=== PATIENT | female | born 1980 | race Caucasian/White ===

== ENCOUNTER 2023-05-20 14:33 | Outpatient (CLI) | payer BC, SELFPAY ==
[2023-05-20 18:41] LABS: Basophils Percent Auto 0.3 % (0.2-1.2); Eosinophils Absolute Auto 0.1 K/mm3 (0-0.3); Eosinophils Percent Auto 1.2 % (0-4.4); Hematocrit 41.7 % (37.0-47.0); Hemoglobin 13.9 g/dL (12.0-15.0); Immature Granulocyte Absolute 0.02 K/mm3 (0.00-0.031); Immature Granulocyte Percent A 0.3 % (0-0.5); Lymphocytes Absolute Auto 1.94 K/mm3 (0.9-3.2); Lymphocytes Percent Auto 29.1 % (18.3-44.2); Mean Corpuscular HGB Conc 33.3 g/dl (32-36); Mean Corpuscular Hemoglobin 33.4 pg (26-34); Mean Corpuscular Volume 100.2 fl (80-100); Mean Platelet Volume 10.7 fl (7.4-10.4); Monocytes Absolute Auto 0.4 K/mm3 (0.1-0.6); Monocytes Percent Auto 6.2 % (2.6-8.5); Neutrophils Absolute Auto 4.2 K/mm3 (1.3-6.7); Neutrophils Percent Auto 62.9 % (45.5-73.1); Platelet Count Result 235 k/mm3 (150-375); Red Blood Count 4.16 M/mm3 (4.2-5.4); Red Cell Distribution Width 12.7 % (11.5-14.5); White Blood Count 6.7 K/mm3 (4.5-10.0)
[2023-05-20 20:50] LABS: Alanine Aminotransferase 30 U/L (6-35); Albumin Level 4.5 g/dL (3.5-5.1); Alkaline Phosphatase 73 U/L (38-126); Anion Gap 5 mmol/L (4-12); Aspartate Amino Transferase 34 U/L (14-36); Bilirubin,Total 1.5 mg/dL (0.2-1.3); Blood Urea Nitrogen 19 mg/dL (7-17); Calcium 9.7 mg/dL (8.4-10.2); Carbon Dioxide 27 mmol/L (22-30); Chloride 105 mmol/L (98-107); Cholesterol 163 mg/dL (0-200); Estimated Glomerular Filt Rate > 60; Glucose 79 mg/dL (65-110); HDL Direct 56 mg/dL; Sodium 137 mmol/L (137-145); Triglycerides 68 mg/dL (<150)
[2023-05-20 21:01] LABS: LDL Cholesterol Direct 80 mg/dL
[2023-05-20 21:46] LABS: Vitamin B12 > 1000.0 pg/mL (239-931)
[2023-05-20 22:01] LABS: Vitamin D 25 Hydroxy 56.7 ng/mL
[2023-05-20 22:36] LABS: Hepatitis C Virus Antibody Negative (Negative)
[2023-05-20 23:56] LABS: Hemoglobin A1C 4.3 % (<5.7)
== END 2023-05-20 14:34 | disposition home or self-care (01) ==
LOC: ANHGOSHLAB 14:34
PROVIDERS: PCP Family Medicine; Visit Provider Family Medicine
DX: Z00.8 Encounter for other general examination (principal); G47.33 Obstructive sleep apnea (adult) (pediatric); I11.0 Hypertensive heart disease with heart failure; I50.22 Chronic systolic (congestive) heart failure; E66.9 Obesity, unspecified; Z79.899 Other long term (current) drug therapy; Z98.84 Bariatric surgery status; Z11.59 Encounter for screening for other viral diseases
CPT/HCPCS: 36415; 80053; 80061; 82306; 82607; 82728; 83036; 84443; 85025; 86803

== ENCOUNTER 2023-09-04 00:41 | Day surgery (SDC) | payer BC, SELFPAY ==
[2023-08-19 12:03] VITALS: BMI 38.9
[2023-09-04 07:27] VITALS: BP 152/106; PULSE 60; RESP 20; TEMP 36.1; O2SAT 100; BMI 38.8
[2023-09-04] MEDS: LACTATED RINGERS 1,000 ML 150 ML IV CONT (07:39)
[2023-09-04 07:58] LABS: SPREG INTERNAL CONTROL Positive; Serum Qual hCG Negative
--- NOTE | 2023-09-04 08:05 | WPDANESEPPF ---
Anes - Initial Pre Proc Eval Procedure: Operation Date: 09/04/23 08:30 Proposed Procedures p Screening Colonoscopy - Saad Fernandes MD Date/Time: 09/04/23 08:05 Surgeon: Saad Fernandes MD Pre Op Diagnosis: neoplasm screening Patient Data Age: 43 Gender: F Height: 1.7 m Weight: 112.5 kg Last Vital Signs Temp 97.0 F L 09/04/23 07:27 Pulse 60 09/04/23 07:27 Resp 20 09/04/23 07:27 BP 152/106 H 09/04/23 07:27 Pulse Ox 100 09/04/23 07:27 O2 Del Method Room Air 09/04/23 07:27 Allergies Allergy/AdvReac Type Severity Reaction Status Date / Time amoxicillin Allergy Mild Unknown Verified 09/04/23 07:26 Home Medications Medication Instructions Recorded Confirmed Type famotidine 20 mg tablet 20 mg PO BID 02/05/21 09/04/23 History losartan 100 mg tablet 100 mg PO DAILY 02/05/21 09/04/23 History amlodipine 10 mg tablet 10 mg PO DAILY 04/10/21 09/04/23 History carvedilol 12.5 mg tablet 12.5 mg PO Q12H 05/20/23 09/04/23 History mecobalamin (vitamin B12) 5,000 5,000 mcg PO DAILY 05/20/23 09/04/23 History mcg chewable tablet [id number]-bpftawpo-jfwb 1 tablet PO DAILY 05/20/23 09/04/23 History fumarate 18 mg-folic acid 400 mcg tablet (One-A-Day Women's Complete) omega 7-smg-dzx-fish oil 60 mg-90 1 cap PO DAILY 05/20/23 09/04/23 History mg-500 mg capsule (Fish Oil) venlafaxine 37.5 mg tablet 37.5 mg PO DAILY #90 tabs 05/20/23 09/04/23 Rx Laboratory Tests 09/04/23 07:37 Serum HCG, Qual Negative Patient hx anesthesia problems: none Family hx anesthesia problems: none Results Review: All pre-operative results and documents have been reviewed as part of the pre-operative evaluation. [facility] Past Medical History Medical History Encounter for Essure implantation Surgical History Surgical History Hx of bariatric surgery Family History Family History Father Diabetes mellitus Hypertension Depression Heart problem Mother Cancer Hypertension Social History Social History Years smoked: 20 Smoking status: Former smoker Tobacco type: cigarettes Smoking end date: 04/02/15 Alcohol intake: never Substance use: never Substance use type: does not use Other substance usage details: as a teenager Do You Feel Safe in your Home?: Yes Living arrangements: alone Occupation/Education: occupation Gender identity (if verbalized by the patient): Female Spiritual care concerns: No Anes - Eval Final PreProcedure Day of Procedure 09/04/23 08:05 Patient weight: obese Heart: regular rate and rhythm Lungs: clear to auscultation Airway: Mallampati scale class II Neurological: alert and oriented Last oral intake: >/= 8 hours ASA classification: III Emergent: no Anesthetic plan: proceed Anesthesia type and monitoring: general GIVS and standard monitoring Results Review: All pre-operative results and documents have been reviewed as part of the pre-operative evaluation. HTN, hx hyperlipidemia, hx of cardiomyopathy w nml LVEF prior to gastric bypass. Informed Consent: The patient's anesthetic plan and its attendant risks and benefits were discussed with the patient/family/POA. Questions were solicited and answers provided to the satisfaction of the patient/family/POA.
[2023-09-04 09:03] VITALS: BP 109/56; PULSE 54; RESP 16; O2SAT 100
[2023-09-04 09:13] VITALS: BP 116/73; PULSE 54; RESP 16; O2SAT 100
[2023-09-04 09:23] VITALS: BP 134/84; PULSE 50; RESP 16; O2SAT 100
--- NOTE | 2023-09-08 10:30 | PM.HPGS ---
History of Present Illness History of Present Illness Consent: Risks, benefits, and alternatives have been discussed and questions answered. Patient agrees to proceed with procedure. Chief complaint: neoplasm screening Narrative: Sena Smith is a 43 year old female here for first screening colonoscopy (this should be H&P for 09/04/23) Review of Systems Review of Systems: All systems reviewed & are unremarkable except as noted in HPI and below PMFSH Past Medical History Medical History (Updated 09/08/23 @ 10:30 by Saad Fernandes MD) Colon cancer screening Encounter for Essure implantation Surgical History Surgical History Hx of bariatric surgery Family History Family History Father Diabetes mellitus Hypertension Depression Heart problem Mother Cancer Hypertension Social History Social History Years smoked: 20 Smoking status: Former smoker Tobacco type: cigarettes Smoking end date: 04/02/15 Alcohol intake: never Substance use: never Substance use type: does not use Other substance usage details: as a teenager Do You Feel Safe in your Home?: Yes Living arrangements: alone Occupation/Education: occupation Gender identity (if verbalized by the patient): Female Spiritual care concerns: No Meds Home Medications and Allergies Home Medications Medication Instructions Recorded Confirmed Type famotidine 20 mg tablet 20 mg PO BID 02/05/21 09/04/23 History losartan 100 mg tablet 100 mg PO DAILY 02/05/21 09/04/23 History amlodipine 10 mg tablet 10 mg PO DAILY 04/10/21 09/04/23 History carvedilol 12.5 mg tablet 12.5 mg PO Q12H 05/20/23 09/04/23 History mecobalamin (vitamin B12) 5,000 5,000 mcg PO DAILY 05/20/23 09/04/23 History mcg chewable tablet [id number]-znesusdu-aaou 1 tablet PO DAILY 05/20/23 09/04/23 History fumarate 18 mg-folic acid 400 mcg tablet (One-A-Day Women's Complete) omega 3-yfi-lxl-fish oil 60 mg-90 1 cap PO DAILY 05/20/23 09/04/23 History mg-500 mg capsule (Fish Oil) venlafaxine 37.5 mg tablet 37.5 mg PO DAILY #90 tabs 05/20/23 09/04/23 Rx Allergies Allergy/AdvReac Type Severity Reaction Status Date / Time amoxicillin Allergy Mild Unknown Verified 09/04/23 07:26 Exam Const: General: comfortable and no acute distress HENMT: Face/Nose/Sinus: Normal nares present Eyes: General: appearance normal, both eyes and all related structures Neck: Neck: no JVD Resp: Auscultation: clear to auscultation bilaterally Cardio: Rate: regular rate Rhythm: regular rhythm GI: Inspection: non-distended GI Palp: Yes Soft to palpation Skin: General skin exam: normal color Neuro: General: gait normal Speech: normal speech Extrem: General: normal to inspection Psych: Mental Status: mental status grossly normal Assessment and Plan Assessment and plan (1) Colon cancer screening: Code(s): Z12.11 - Encounter for screening for malignant neoplasm of colon Status: Acute Assessment and Plan: colonoscopy
== END 2023-09-04 09:40 | disposition home or self-care (01) ==
PROVIDERS: Anesthesiology; PCP Family Medicine; Visit Provider Internal Medicine Gastroenterology
PROC: 0DJD8ZZ Inspection of Lower Intestinal Tract, Via Natural or Artificial Opening Endoscopic (ICD-10-PCS; CPT 45378; principal; 2023-09-04 08:30)
DX: Z12.11 Encounter for screening for malignant neoplasm of colon (principal); K64.8 Other hemorrhoids; Z87.891 Personal history of nicotine dependence
CPT/HCPCS: 45378; 36415; 84703; J2704; J7120

== ENCOUNTER 2024-06-02 11:04 | Outpatient (CLI) | payer BC, SELFPAY ==
--- OUTSIDE RECORDS SUMMARY | 2024-06-02 11:56 | XMS_ITS | Clinical Summary ---
Author Organization [facility] Address [address] [place] [address] Care Team Providers Care Aircraft Parts Assembler Name Role Phone Eliezer Mcdaniel MD Primary Care Provider [phone] Allergies Active Allergy Reactions Criticality Noted Date Comments Amoxicillin Hives,Itching Medium 11/18/2018 Medications cholecalcifero l (VITAMIN D-3) 25 mcg (1,000 unit) tabletIndicati ons:Vitamin D Deficiency Take 1 tablet (1,000 Units total) by mouth every morning Active cyanocobalamin (Vitamin B-12) 500 mcg tabletIndicati ons:Prevention of Vitamin B12 Deficiency Take 1 tablet (500 mcg total) by mouth daily 30 tablet 11 0 Active fish mey-wkbpm-8-vi t C-vit E 2,000-650-12 mg/2.5 gram emulsion in packet Take by mouth Active multivit-iron- min-folic acid 18-0.4 mg tablet Take by mouth Active carvediloL (COREG) 12.5 mg tablet Take 0.5 tablets (6.25 mg total) by mouth 2 (two) times a day with meals 180 tablet 1 4 Active amLODIPine (NORVASC) 10 mg tablet TAKE 1 TABLET(10 MG) BY MOUTH DAILY 90 tablet 2 5 Active losartan (COZAAR) 100 mg tablet TAKE 1 TABLET(100 MG) BY MOUTH DAILY 90 tablet 3 5 Active losartan (COZAAR) 100 mg tablet TAKE 1 TABLET(100 MG) BY MOUTH DAILY 90 tablet 1 4 06/01/19 25 Discontinued Active Problems Problem Noted Date Diagnosed Date Dyslipidemia 01/23/2021 Mild aortic regurgitation wi th LV dilation by prior echocardiogram 01/23/2021 Pulmonary infiltrates 08/22/[address] of the chest 08/21/2020 Dilated cardiomyopathy 07/02/2020 Morbid obesity due to excess calories 12/02/2019 Overview (12/02/2019): Added automatically from request for surgery [id number] Lung nodule 05/03/2019 Major depressive disorder, s abelino episode, in partial remission 12/21/2018 Morbid obesity 11/18/2018 HTN (hypertension) 04/27/2015 Preop pulmonary/respiratory exam Encounters Date Type Department Care Team Description 03/21/2024 Orders Only [facility] Cardiology [address] [place] [address] [place] [address] Ish Ceron MD from Last 3 Months Surgical History Surgery Date Site/Laterality Comments SECTION ABDOMINAL SURGERY GASTRECTOMY gastric bypass 2020 HERNIA REPAIR Medical History Medical History Date Comments Morbid obesity (HCC) Joint pain Hypertension Depression Anxiety Sleep apnea does not use CPA P Family History Medical History Relation Name Comments Diabetes Father Heart disease Father Hypertension Father Obesity Father Cancer Mother eye & spleen, b rain tumor Hypertension Mother Obesity Mother Diabetes Other 1 grandparents Heart disease Other 1 grandparents Hypertension Other 1 grandparents Depression Other 2 siblings Obesity Other 2 siblings Relation Name Status Comments Father Mother Other 1 grandparents Other 2 siblings Social History Tobacco Use Types Packs/Day Years Used Date Smoking Tobacco: Former Cigarettes 0.3 16 2 000 - 2016 Smokeless Tobacco: Never Tobacco Cessation:Counseling Given: Not Answered Alcohol Use Standard Drinks/Week Comments Not Currently 0 (1 standard drink = 0.6 oz pur e alcohol) AUDIT-C Answer Date Recorded Q1: How often do you have a drink containing alc ohol? Never 09/05/2020 Average Number of Drinks Not on file 021 Frequency of Binge Drinking Not on file 08/17 PHQ-2 Answer Date Recorded PHQ-2 Total Score (If total score is 3 or more points, staff should administer the PHQ-9) 0 12/26/2019 Comments No Sex and Gender Information Value Date Recorded Sex Assigned at Not on file Legal Sex Female 1:07 PM DIGITAL COMPUTER SYSTEMS ANALYST Gender Identity Not on file Sexual Orientation Not on file Obstetrics History Para Term AB IAB SAB Ectopic Multiple Livin g Live Births 2 2 2 Date Outcome GA Total Labor Labor/2nd/3rd Weight Sex Type Anes PTL Samara A1 A5 Name Clin Term Term Last Filed Vital Signs Vital Sign Reading Time Taken Comments Blood Pressure 128/98 10/07/2023 3:23 PM CDT Pulse 59 10/07/2023 3:23 PM CDT Temperature 37.2 C (99 F) 11/28/2021 2:56 PM CDT Respiratory Rate 18 11/28/2021 2:56 PM CDT Oxygen Saturation 97% 10/07/2023 3:23 PM CDT Inhaled Oxygen Concentration - - Weight 96.7 kg (213 lb 1.9 oz) 01/24/2022 11:38 AM DIGITAL COMPUTER SYSTEMS ANALYST Height 170.2 cm (5' 7 ) 10/07/2023 3:23 PM CDT Body Mass Index 33.38 01/24/2022 11:38 AM DIGITAL COMPUTER SYSTEMS ANALYST Plan of Treatment Health Maintenance Due Date Last Done Comments Cervical Cancer Screening 1978 Colon Cancer Screening-Colonoscopy 1978 Hepatitis C Screening 1978 DTaP/Tdap/Td Vaccine (1 - Tdap) 1989 Hepatitis B Screening 01/28/1996 Regular Well Visit/Exam 18-64 01/28/1996 Depression Screening 12/01/2020 12/02/2019, 12/02/2019 Influenza Vaccine (Season Ended) 2024 12/18/2018 Breast Cancer Screening-Mammogram 11/05/2024 11/06/2023 HPV Vaccines Aged Out No longer eligi ble based on patient's age to complete this topic Pneumococcal vaccine <65 Aged Out No longer eligible based on patient's age to complete this topic Procedures Procedure Name Priority Date/Time Associated Diagnosis Comments SCREENING MAMMOGRAM BILATERAL W FRANK Schedule Routine, Read Routine (OP Routine) 11/06/2023 7:54 AM CDT Screening mammogram, encounter for from Last 3 Months or Most Recently Relevant to Health Maintenance Results * Screening Mammogram Bilateral W Frank (11/06/2023 7:54 AM CDT) Anatomical Region Laterality Modality Breast Bilateral Mammography 11/06/2023 9:35 AM CDT Impressions 11/06/2023 9:35 AM CDT No evidence of malignancy in either breast. FINAL ASSESSMENT: BI-RADS Category 1: Negative. RECOMMENDATION: Recommend return for annual screening mammogram in 12 months. Electronically signed by: Isai Ariza 11/06/2023 9:35 AM CDT EXAMINATION: BILATERAL SCREENING MAMMOGRAM COMPARISON: This is the patient's baseline mammogram. TECHNIQUE: Full-field 2D and digital breast tomosynthesis (DBT) images were obtained. CAD was utilized. BREAST PARENCHYMAL COMPOSITION: The breasts are almost entirely fatty. FINDINGS: There is no suspicious mass, calcification, or distortion in either breast. us Self Screening Mammogram IMG MAMMO PROCEDURES Fi nal Result from Last 3 Months or Most Recently Relevant to Health Maintenance Insurance SeeMore Interactive PA SeeMore Interactive PA SeeMore Interactive PA SeeMore Interactive PA Advance Directives For more information, please contact: [phone] * Full Code (Latest Code Status on File) Date Activated Date Inactivated Comments 12/26/2019 2:32 PM 12/27/2019 7:33 PM Care Teams Aircraft Parts Assembler Relationship Specialty Start Date End Date Eliezer Mcdaniel MD PCP - General Family Medicine 01/23/21
--- OUTSIDE RECORDS SUMMARY | 2024-06-02 11:56 | XMS_ITS | Clinical Summary ---
Author Organization [facility] Address [address] [place] [place] [address] Care Team Providers Care Dumper Bailer Operator Name Role Phone Gerald Darby MD Primary Care Provider [phone] Ross Macario Unavailable [phone] Source Comments [facility],non-owned Affiliates and Associated Physician Practices is amultiple site organization consisting of ambulatory clinics and hospital sitesin [place], [place], [place] and [place]. This disclosure is being madepursuant to the Care Everywhere program and may not contain all information available regarding this patient. Last updated 17.[facility] Allergies No known active allergies Medications * Be aware that medications may not be up to date on this document. Alwaysverify current medications with the patient. [place] POTASSIUM PO Take 100 mg by mouth Active hydrochlorothiaz eun (HYDRODIURIL) 25 MG tablet Take 25 mg by mouth once daily Active metoprolol succinate XL 24hr (TOPROL XL) 100 MG tablet Take 100 mg by mouth once daily Active Active Problems Problem Noted Date Diagnosed Date HTN (hypertension) 04/27/2015 Morbid obesity due to excess calories 04/27/2015 Arthritis of spine 04/27/2015 Social History Tobacco Use Types Packs/Day Years Used Date Smoking Tobacco: Former Cigarettes Q uit: 03/26/2015 Alcohol Use Standard Drinks/Week Comments Not Asked 0 (1 standard drink = 0.6 oz pur e alcohol) Comments Unknown Sex and Gender Information Value Date Recorded Sex Assigned at Not on file Legal Sex Female 6:30 AM BUSINESS SYSTEMS CONSULTANT Gender Identity Not on file Sexual Orientation Not on file Last Filed Vital Signs Vital Sign Reading Time Taken Comments Blood Pressure 174/111 04/27/2015 11:20 AM BUSINESS SYSTEMS CONSULTANT Pulse 65 04/27/2015 11:20 AM BUSINESS SYSTEMS CONSULTANT Temperature - - Respiratory Rate - - Oxygen Saturation - - Inhaled Oxygen Concentration - - Weight 156 kg (344 lb) 04/27/2015 3:00 PM BUSINESS SYSTEMS CONSULTANT Height 170.2 cm (5' 7 ) 04/27/2015 3:00 PM BUSINESS SYSTEMS CONSULTANT Body Mass Index 53.88 04/27/2015 3:00 PM BUSINESS SYSTEMS CONSULTANT Plan of Treatment Health Maintenance Due Date Last Done Comments COLOGUARD (AGES 45-75) - COL ON CA SCREENING 1978 COLON MONITORING 1978 COLONOSCOPY - COLON CA SCREENING 1978 CT COLONOGRAPHY - COLON CA SCREENING 1978 Colorectal Cancer Screening 1978 FIT - COLON CA SCREENING 1978 FLEX SIG - COLON CA SCREENING 1978 LIPID TESTING 1978 MAMMOGRAM 1978 HIV SCREENING 1993 HEPATITIS C SCREENING 01/23/1996 DTAP/TDAP/TD VACCINES (1 - Tdap) 1997 HEPATITIS B VACCINE (1 of 3 - 19+ 3-dose series) 1997 COVID-19 VACCINE (1 - 2023-2 5 season) 2023 DEPRESSION SCREENING 02/17/2024 INFLUENZA VACCINE (Season Ended) 2024 ZOSTER VACCINE (1 of 2) 01/28/2028 HIB VACCINE Aged Out No longer eligi ble based on patient's age to complete this topic HPV VACCINE Aged Out No longer eligi ble based on patient's age to complete this topic MENINGOCOCCAL (Group B) VACC INE SHARED DECISION-MAKING Aged Out No longer eligibl e based on patient's age to complete this topic MENINGOCOCCAL GROUPS A/C/Y/W VACCINE Aged Out No longer eligible b ased on patient's age to complete this topic PNEUMOCOCCAL VACCINE Aged Out No long er eligible based on patient's age to complete this topic Insurance [employer] - [place] Care Teams Dumper Bailer Operator Relationship Specialty Start Date End Date Gerald Darby MD [address] [place] [phone] PCP - General Family Medicine 04/27/15 Ross Macario PA [address] [place] [phone] Physician Geoscience Technician 04/27/15
--- OUTSIDE RECORDS SUMMARY | 2024-06-02 11:56 | XMS_ITS | Clinical Summary ---
Author Organization [facility] Address [address] [place] [address] Care Team Providers Care Cow Rider Name Role Phone None, Provider MD Primary Care Provider Unavaila ble Allergies Active Allergy Reactions Criticality Noted Date Comments Amoxicillin-Pot Clavulanate Hives 08/13/19 16 Medications losartan (COZAAR) 100 MG tablet Take 1 tablet by mouth daily. 07/03/2015 Active hydrochlorothiaz eun 25 MG tablet Take 1 tablet by mouth daily. 07/03/2015 Active metoprolol succinate (TOPROL XL) 100 MG 24 hr tablet Take 1 tablet by mouth daily. 07/03/2015 Active Social History Tobacco Use Types Packs/Day Years Used Date Smoking Tobacco: Former Comments Unknown Sex and Gender Information Value Date Recorded Sex Assigned at Not on file Legal Sex Female 5:20 PM CDT Gender Identity Not on file Sexual Orientation Not on file Last Filed Vital Signs Vital Sign Reading Time Taken Comments Blood Pressure 157/96 07/11/2015 3:14 PM CDT Pulse 74 07/11/2015 3:13 PM CDT Temperature - - Respiratory Rate 16 07/11/2015 3:13 PM CDT Oxygen Saturation - - Inhaled Oxygen Concentration - - Weight 161 kg (354 lb 14.4 oz) 07/11/2015 3:13 P M CDT Height 172.7 cm (5' 8 ) 07/11/2015 3:13 PM CDT Body Mass Index 53.96 07/11/2015 3:13 PM CDT Plan of Treatment Health Maintenance Due Date Last Done Comments Cervical Cancer Screening Pa p Smear (Age 30 to 64) Every 3 Years 1978 Colorectal Cancer Screening Colonoscopy (10 Years) 1978 Annual Physical 1981 Hepatitis C 01/28/1996 DTaP, Tdap and Td Vaccines ( 1 - Tdap) 1997 Hepatitis B Vaccines (1 of 3 - 19+ 3-dose series) 1997 Cervical Cancer Screening Lencho leyva with HPV Testing (Age 30 to 64) Every 5 Years 01/28/2008 Cervical Cancer Screening with HPV 01/28/2008 Mammogram Screening 2018 COVID-19 Vaccine ( - 2023-2 5 season) 2023 Meningococcal B Vaccine Aged Out No l onger eligible based on patient's age to complete this topic Meningococcal Vaccine Aged Out No román ranjith eligible based on patient's age to complete this topic Pneumococcal Vaccine: Pediat rics (0 to 5 Years) and At-Risk Patients (6 to 49 Years) Aged Out No longer eligible b ased on patient's age to complete this topic RSV Immunizations Under 20 Months Aged Out No longer eligible based on patient's age to complete this topic Insurance Care Teams Cow Rider Relationship Specialty Start Date End Date None, Provider, PCP - General 07/15/19
--- OUTSIDE RECORDS SUMMARY | 2024-06-02 11:56 | XMS_ITS | Encounter Summary ---
Author Organization [facility] Address [address] [place] [address] Phone Care Team Providers Care Barrel Lathe Operator Name Role Phone Pily Cota NP Primary Care Provider [phone] Eliezer Mcdaniel MD Primary Care Provider [phone] Encounter Details Date Type Department Care Team (Latest Contact Info) Description 11/22/2019 Orders Only [facility] Scanning, Provider Social History Tobacco Use Types Packs/Day Years Used Date Smoking Tobacco: Former Cigarettes Q uit: 2016 Smokeless Tobacco: Never Alcohol Use Standard Drinks/Week Comments Not Currently 0 (1 standard drink = 0.6 oz pur e alcohol) Comments Unknown Sex and Gender Information Value Date Recorded Sex Assigned at Not on file Legal Sex Female 1:07 PM PATIENT SERVICE SPECIALIST Gender Identity Not on file Sexual Orientation Not on file documented as of this encounter Plan of Treatment Not on file documented as of this encounter Procedures Procedure Name Priority Date/Time Associated Diagnosis Comments SCAN - RADIOLOGY/IMAGING 11/22/2019 documented in this encounter Results * SCAN - RADIOLOGY/IMAGING (11/22/2019) Anatomical Region Laterality Modality Other us Provider Scanning Final Result documented in this encounter Visit Diagnoses Not on filedocumented in this encounter Care Teams Barrel Lathe Operator Relationship Specialty Start Date End Date Pily Cota NP PCP - General Nurse Practitioner 08/02/18 01/22/21 Eliezer Mcdaniel MD PCP - General Family Medicine 01/23/21 documented as of this encounter
--- OUTSIDE RECORDS SUMMARY | 2024-06-02 11:56 | XMS_ITS | Encounter Summary ---
Author Organization [facility] Address [address] [place] [address] Care Team Providers Care Finance Professional Name Role Phone Rajan Mayes MD Unavailable Unavailable None, Provider Primary Care Provider Unavaila ble Encounter Details Date Type Department Care Team (Late st Contact Info) Description 07/24/2018 Abstract [facility] CONVERSION [address] [address] , Generic Conversion, Social History Tobacco Use Types Packs/Day Years Used Date Smoking Tobacco: Former Comments Unknown Sex and Gender Information Value Date Recorded Sex Assigned at Not on file Legal Sex Female 5:20 PM CDT Gender Identity Not on file Sexual Orientation Not on file documented as of this encounter Plan of Treatment Not on file documented as of this encounter Visit Diagnoses Not on filedocumented in this encounter Care Teams Finance Professional Relationship Specialty Start Date End Date None, Provider, PCP - General 07/15/19 Rajan Mayes MD [employer] Private Wealth Advisor CARDIOVASCULAR DISEASE 06/04/17 02/23/19 documented as of this encounter
--- OUTSIDE RECORDS SUMMARY | 2024-06-02 11:56 | XMS_ITS | Referral Summary ---
Author Organization [facility] Address [address] [place] [address] Care Team Providers Care K 12 Principal Name Role Phone Eliezer Mcdaniel MD Primary Care Provider [phone] Encounters Date Type Department Care Team Description 03/21/2024 Orders Only [facility] [address] [place] [address] [place] [address] Ish Ceron MD from Last 3 Months Allergies Active Allergy Reactions Criticality Noted Date Comments Amoxicillin Hives,Itching Medium 11/18/2018 Medications cholecalcifero l (VITAMIN D-3) 25 mcg (1,000 unit) tabletIndicati ons:Vitamin D Deficiency Take 1 tablet (1,000 Units total) by mouth every morning Active cyanocobalamin (Vitamin B-12) 500 mcg tabletIndicati ons:Prevention of Vitamin B12 Deficiency Take 1 tablet (500 mcg total) by mouth daily 30 tablet 11 0 Active fish [id number] t C-vit E 2,000-650-12 mg/2.5 gram emulsion [...] (12/02/2019): Added automatically from request for surgery [id number] Lung nodule 05/03/2019 Major depressive disorder, s abelino episode, in partial remission 12/21/2018 Morbid obesity 11/18/2018 HTN (hypertension) 04/27/2015 Preop pulmonary/respiratory exam Social History Tobacco Use Types Packs/Day Years Used Date Smoking Tobacco: Former Cigarettes 0.3 16 2 000 - 2015 Smokeless Tobacco: Never Tobacco Cessation:Counseling Given: Not [...] on file Legal Sex Female 1:07 PM SUPPORT ANALYST Gender Identity Not on file Sexual [...] (213 lb 1.9 oz) 01/24/2022 11:38 AM SUPPORT ANALYST Height 170.2 cm (5' 7 ) 10/07/2023 3:23 PM CDT Body Mass Index 33.38 01/24/2022 11:38 AM SUPPORT ANALYST Plan of Treatment Not on file Procedures Procedure Name Priority Date/Time Associated Diagnosis [...] mammogram in 12 months. Electronically signed by: Cathryn Doe M.D. Narrative 11/06/2023 9:35 AM CDT EXAMINATION: BILATERAL SCREENING [...] Most Recently Relevant to Health Maintenance Insurance [facility] [employer] [facility] Advance Directives For more information, please contact: [phone] * Full Code (Latest Code Status on File) Date Activated Date Inactivated Comments 12/26/2019 2:32 PM 12/27/2019 7:33 PM Care Teams K 12 Principal Relationship Specialty Start Date End Date Eliezer Mcdaniel MD PCP - General Family Medicine 01/23/21
[2024-06-02 12:56] LABS: Basophils Percent Auto 0.3 % (0.2-1.2); Eosinophils Absolute Auto 0.1 K/mm3 (0-0.3); Eosinophils Percent Auto 2.2 % (0-4.4); Hematocrit 41.8 % (37.0-47.0); Hemoglobin 13.7 g/dL (12.0-15.0); Immature Granulocyte Absolute 0.02 K/mm3 (0.00-0.031); Immature Granulocyte Percent A 0.3 % (0-0.5); Lymphocytes Absolute Auto 1.63 K/mm3 (0.9-3.2); Lymphocytes Percent Auto 25.8 % (18.3-44.2); Mean Corpuscular HGB Conc 32.8 g/dl (32-36); Mean Corpuscular Hemoglobin 32.8 pg (26-34); Mean Platelet Volume 10.4 fl (7.4-10.4); Monocytes Absolute Auto 0.5 K/mm3 (0.1-0.6); Monocytes Percent Auto 8.5 % (2.6-8.5); Neutrophils Percent Auto 62.9 % (45.5-73.1); Platelet Count Result 273 k/mm3 (150-375); Red Blood Count 4.18 M/mm3 (4.2-5.4); Red Cell Distribution Width 12.5 % (11.5-14.5); White Blood Count 6.3 K/mm3 (4.5-10.0)
[2024-06-02 13:31] LABS: Hemoglobin A1C 4.7 % (<5.7)
[2024-06-02 13:43] LABS: Alanine Aminotransferase 25 U/L (6-35); Albumin Level 4.1 g/dL (3.5-5.1); Alkaline Phosphatase 82 U/L (38-126); Anion Gap 7 mmol/L (4-12); Aspartate Amino Transferase 38 U/L (14-36); Bilirubin,Total 1.3 mg/dL (0.2-1.3); Blood Urea Nitrogen 19 mg/dL (7-17); Calcium 8.9 mg/dL (8.4-10.2); Carbon Dioxide 28 mmol/L (22-30); Chloride 102 mmol/L (98-107); Cholesterol 165 mg/dL (0-200); Estimated Glomerular Filt Rate > 60; Glucose 93 mg/dL (65-110); HDL Direct 51 mg/dL; Potassium 4.3 mmol/L (3.4-5.0); Sodium 137 mmol/L (137-145); Triglycerides 77 mg/dL (<150)
[2024-06-02 13:53] LABS: LDL Cholesterol Direct 79 mg/dL
[2024-06-02 20:28] LABS: Vitamin D 25 Hydroxy 44.4 ng/mL
== END 2024-06-02 11:05 | disposition home or self-care (01) ==
LOC: ANHGOSHLAB 11:05
PROVIDERS: PCP Family Medicine; Visit Provider Family Medicine
DX: I50.22 Chronic systolic (congestive) heart failure (principal); Z98.84 Bariatric surgery status; E66.01 Morbid (severe) obesity due to excess calories
CPT/HCPCS: 36415; 80053; 80061; 82306; 82607; 82728; 83036; 84443; 85025